=== PATIENT | female | born 1985 | race Caucasian/White ===

== ENCOUNTER 2018-02-17 09:16 | Observation (INO) | payer BC ==
[2018-02-16 12:09] VITALS: BMI 29.5
[2018-02-17] MEDS ORDERED: Scopolamine 1.5 mg/72 hour Patch ONE (11:20)
[2018-02-17 11:21] LABS: BHCG - Serum Negative (NEGATIVE); Pregs Control Background? CLEAR/WHITE (CLR/WHITE); Pregs Control Bar Appear? YES (CONTROL BAR)
[2018-02-17] MEDS ORDERED: Lidocaine 1% w/Epinephrine 1:100K 30 ML VIAL ONE (11:22)
[2018-02-17] MEDS ORDERED: Midazolam HCl 2 mg/2 ml Vial ONE (11:39)
[2018-02-17] MEDS ORDERED: Fentanyl 100 MCG/2 ML VIAL ONE ×2 (11:41→13:41)
[2018-02-17] MEDS ORDERED: Promethazine HCl 25 MG/ML VIAL IM PRN (12:24)
[2018-02-17] MEDS ORDERED: Meperidine HCl/PF 25 MG/ML VIAL SLOW IVP PRN (12:24)
[2018-02-17] MEDS ORDERED: Ondansetron HCl/PF 4 MG/2 ML Vial IVP PRN (12:24)
[2018-02-17] MEDS ORDERED: Promethazine HCl 25 MG/ML VIAL SLOW IVP PRN (12:24)
[2018-02-17] MEDS ORDERED: HYDROcodone/Acetaminophen 7.5/325 mg Tablet PO PRN ×2 (14:01→14:02)
[2018-02-17] MEDS ORDERED: Ondansetron PF 4 MG/2 ML Vial SLOW IVP PRN (14:02)
[2018-02-17] MEDS ORDERED: Morphine 4 MG/ML VIAL SLOW IVP PRN (14:03)
[2018-02-17] MEDS ORDERED: ALPRAZolam 0.25 MG TAB PO PRN (14:03)
[2018-02-17] MEDS: Lactated Ringer's 1,000 ML IV SCH (17:30)
[2018-02-17] MEDS ORDERED: Ondansetron PF 4 MG/2 ML Vial ONE (22:14)
[2018-02-17] MEDS ORDERED: PHENYLEPHRINE-NS 100 MCG/ML 10 ML SYRINGE ONE (22:14)
[2018-02-17] MEDS ORDERED: Sterile Water 10 ML VIAL ONE (22:14)
[2018-02-17] MEDS ORDERED: PROPOFOL 200 MG/20 ML VIAL ONE (22:14)
[2018-02-17] MEDS ORDERED: CEFAZOLIN 1 GM VIAL ONE (22:14)
[2018-02-17] MEDS ORDERED: Lidocaine 1% PF 5 ML VIAL ONE (22:14)
[2018-02-17] MEDS ORDERED: Succinylcholine Chloride 20 MG/ML 10 ml SYRINGE FS ONE (22:14)
[2018-02-17] MEDS ORDERED: Dexamethasone 20 MG/5 ML VIAL ONE (22:14)
[2018-02-18] MEDS: Lactated Ringer's 1,000 ML IV SCH (05:28)
[2018-02-18 08:08] VITALS: BP 124/80; TEMP 98.5
--- NOTE | 2018-02-18 10:11 | OP ---
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 PROCEDURES PERFORMED: Completion thyroidectomy with left thyroid lobectomy, right neck exploration with excision of deep neck mass and scar revision measuring 12 cm. DESCRIPTION OF PROCEDURE: The patient was identified and brought to the operating room and placed on the operating room table in supine position. General endotracheal anesthesia was obtained with a laryngeal nerve monitoring endotracheal tube, it was documented to be functioning well. The patient was then positioned and prepped and draped for thyroid surgery. The area of intended incision was infiltrated with 1% lidocaine and 1:100,000 epinephrine. We then delineated with a marking pen the anticipated incision, which included the old scar and elevated up to the level of the natural skin crease. An elliptical incision was then made that included the old scar and connected it with the natural skin crease. This was carried down through the skin, subcutaneous tissues, and platysma. The subplatysmal flaps were then elevated inferiorly and superiorly and a self-retaining retractor was placed. Hemostasis was obtained . The superficial anterior jugular veins were suture divided between the clamps. We then placed a self-retaining retractor and the strap muscles. At first, we went to address previously identified lymph nodes on the right neck in the thyroid bed, which were identified on ultrasound. Two lymph nodes that were measuring approximately 1.5 cm were identified and sent for histologic evaluation and frozen section, that came back without evidence of malignancy, so the decision was made not to proceed with a neck dissection at that point on the right. We then proceeded with the completion thyroidectomy based on the previous diagnosis of papillary carcinoma. The strap muscle was divided and the anterior capsule of the left thyroid gland was identified and dissected from the surrounding tissue. Middle thyroid vein, inferior vessels, and superior vessels were identified and removed as was the parathyroid glands, which were identified and from the thyroid gland with the vasculature intact. We then mobilized the thyroid gland and retracted immediately as the recurrent laryngeal nerve was identified and dissected towards its insertion at the cricothyroid muscle. This then allowed for continued reflection of the thyroid gland from the pretracheal fascia, and the thyroid gland was subsequently removed and sent for permanent histologic evaluation. Bleeding points were identified, cauterized, and were suture ligated. We then turned our attention to wound closure and scar revision. Fibrillar Surgicel was placed in the deep aspect of the wound and fibrillar Surgicel was placed in the subplatysmal region in the thyroid bed. We then reapproximated the strap muscles and the platysma with an absorbable 3-0 Monocryl. The dermis was reapproximated with 4-0 Monocryl and the skin was closed with a 5-0 running suture. The wound was reinforced with Steri-Strips and a sterile dressing. The patient was awakened, extubated, and taken to recovery room in stable condition prior to admission to the floor for a 23-hour observation. BISTRO ATTENDANT: Nathan Valenzuela MD Job ID: [id number]
== END 2018-02-18 10:20 | disposition home or self-care (01) ==
LOC: SDC 09:16 → INTOOBSV 15:40 → SURG B 15:40
PROVIDERS: ADMIT Specialist; ATTEND Specialist
PROC: 0GTK0ZZ Resection of Thyroid Gland, Open Approach (ICD-10-PCS; principal; 2018-02-18)
PROC: 07B10ZX Excision of Right Neck Lymphatic, Open Approach, Diagnostic (ICD-10-PCS; 2018-02-18)
DX: C73 Malignant neoplasm of thyroid gland (principal); E89.0 Postprocedural hypothyroidism; E04.1 Nontoxic single thyroid nodule; R59.0 Localized enlarged lymph nodes; Z79.899 Other long term (current) drug therapy
CPT/HCPCS: 36415; 82310; 84703; 85014; 88305; 88307; 88331; 88334; 96374; A4216; G0378; J0690; J1100; J2001; J2250; J2270; J2405; J2704; J3010